=== PATIENT | male | born 1965 | race Caucasian/White ===

== ENCOUNTER 2017-09-11 18:51 | Emergency (ER) | payer OTHER ==
[~2017-09-11] VITALS: Ht 185.4 cm; Wt 93.0 kg
[2017-09-11 19:01] VITALS: BP 123/85
== END 2017-09-11 21:32 | disposition home or self-care (01) ==
LOC: ER 18:51
DX: T18.9XXA Foreign body of alimentary tract, part unspecified, initial encounter (principal); I48.91 Unspecified atrial fibrillation; I10 Essential (primary) hypertension; E78.5 Hyperlipidemia, unspecified; Z88.0 Allergy status to penicillin; X58.XXXA Exposure to other specified factors, initial encounter; Y93.89 Activity, other specified; Y99.8 Other external cause status; Y92.89 Other specified places as the place of occurrence of the external cause
CPT/HCPCS: 70490